=== PATIENT | female | born 1990 | race Caucasian/White ===

== ENCOUNTER 2018-01-17 13:00 | Emergency (ER) | payer SELFPAY ==
[~2018-01-17] VITALS: Ht 172.7 cm; Wt 131.5 kg
--- NOTE | 2018-01-17 15:23 | PHYS DOC ---
Past Medical History Past Medical History: No Pertinent History Past Surgical History: No Surgical History Alcohol Use: None Drug Use: Marijuana, Methamphetamine Social History Narrative: LAST USE 12/2017 Adult General Chief Complaint Chief Complaint: BACK PAIN - NO INJURY HPI HPI Patient is a 27 year old female presents the ED complaining of lower abdominal pain and back pain 2 days. Patient states she is . Last menstrual period was at the end of October. History of 1 previous that went full term without complications. Describes her pain as crampy. Rates her pain as 3 out of 10. Patient states that she just got out of rehabilitation at [facility]. Patient states she was sent there after she got out of [facility] for a parole violation. States she has not used meth in 2-3 months. Denies fever, vaginal discharge/bleeding, diarrhea, nausea/vomiting, chest pain, shortness of breath, lower leg swelling or dysuria. Review of Systems Review of Systems Constitutional: Denies fever or chills [] Eyes: Denies change in visual acuity, redness, or eye pain [] HENT: Denies nasal congestion or sore throat [] Respiratory: Denies cough or shortness of breath [] Cardiovascular: No additional information not addressed in HPI [] GI: Complains of abdominal pain. Denies nausea, vomiting, bloody stools or diarrhea [] : Denies dysuria or hematuria [] Musculoskeletal: Complains of back pain. Denies joint pain [] Integument: Denies rash or skin lesions [] Neurologic: Denies headache, focal weakness or sensory changes [] All other systems were reviewed and found to be within normal limits, except as documented in this note. Current Medications Current Medications Current Medications Medications (Trade) Dose Ordered Sig/[facility] Start Time Stop Time Status Last Admin Dose Admin Acetaminophen (Tylenol) 650 mg 1X ONCE 01/17/18 16:30 01/17/18 16:31 DC 01/17/18 16:29 650 MG Allergies Allergies Allergies Coded Allergies Type Severity Reaction Last Updated Verified aspirin Allergy Unknown 01/17/18 Yes caffeine Allergy Unknown 01/17/18 Yes Physical Exam Physical Exam Constitutional: Well developed, well nourished, no acute distress, non-toxic appearance. [] HENT: Normocephalic, atraumatic Cardiovascular:Heart rate regular rhythm, no murmur [] Lungs & Thorax: Bilateral breath sounds clear to auscultation [] Abdomen: Bowel sounds normal, soft, no tenderness, no masses, no pulsatile masses. [] : Patient refused. Skin: Warm, dry, no erythema, no rash. [] Back: No tenderness, no CVA tenderness. [] Extremities: No tenderness, no cyanosis, no clubbing, ROM intact, no edema. [] Neurologic: Alert and oriented X 3, normal motor function, normal sensory function, no focal deficits noted. [] Psychologic: Affect normal, judgement normal, mood normal. [] Current Patient Data Vital Signs Vital Signs Date Time Temp Pulse Resp B/P (MAP) Pulse Ox O2 Delivery O2 Flow Rate FiO2 01/17/18 17:30 76 135/63 (87) 99 Room Air 01/17/18 13:50 97.9 18 97.9 Lab Values Laboratory Tests Test 01/17/18 14:57 01/17/18 15:14 01/17/18 15:30 POC Urine HCG, Qualitative Hcg positive (Negative) Urine Collection Type Unknown Urine Color Yellow Urine Clarity Clear Urine pH 7.0 Urine Specific [place] 1.020 Urine Protein Negative mg/dL (NEG-TRACE) Urine Glucose (UA) Negative mg/dL (NEG) Urine Ketones (Stick) Negative mg/dL (NEG) Urine Blood Negative (NEG) Urine Nitrite Negative (NEG) Urine Bilirubin Negative (NEG) Urine Urobilinogen Dipstick 0.2 mg/dL (0.2 mg/dL) Urine Leukocyte Esterase Small (NEG) Urine RBC 0 /HPF (0-2) Urine WBC Occ /HPF (0-4) Urine Squamous Epithelial Cells Mod /LPF Urine Bacteria Few /HPF (0-FEW) Urine Mucus Slight /LPF White Blood Count 10.6 x10^3/uL (4.0-11.0) Red Blood Count 4.34 x10^6/uL (3.50-5.40) Hemoglobin 13.5 g/dL (12.0-15.5) Hematocrit 38.0 % (36.0-47.0) Mean Corpuscular Volume 88 fL (79-100) Mean Corpuscular Hemoglobin 31 pg (25-35) Mean Corpuscular Hemoglobin Concent 35 g/dL (31-37) Red Cell Distribution Width 13.4 % (11.5-14.5) Platelet Count 259 x10^3/uL (140-400) Neutrophils (%) (Auto) 71 % (31-73) Lymphocytes (%) (Auto) 22 % (24-48) L Monocytes (%) (Auto) 6 % (0-9) Eosinophils (%) (Auto) 1 % (0-3) Basophils (%) (Auto) 1 % (0-3) Neutrophils # (Auto) 7.6 x10^3uL (1.8-7.7) Lymphocytes # (Auto) 2.3 x10^3/uL (1.0-4.8) Monocytes # (Auto) 0.6 x10^3/uL (0.0-1.1) Eosinophils # (Auto) 0.1 x10^3/uL (0.0-0.7) Basophils # (Auto) 0.1 x10^3/uL (0.0-0.2) Maternal Serum HCG Beta Subunit 72342 mIU/mL (0-5) H Sodium Level 136 mmol/L (136-145) Potassium Level 4.4 mmol/L (3.5-5.1) Chloride Level 103 mmol/L (98-107) Carbon Dioxide Level 22 mmol/L (21-32) Anion Gap 11 (6-14) Blood Urea Nitrogen 9 mg/dL (7-20) Creatinine 0.6 mg/dL (0.6-1.0) Estimated GFR (Cockcroft-Gault) 119.9 BUN/Creatinine Ratio 15 (6-20) Glucose Level 89 mg/dL (70-99) Calcium Level 8.9 mg/dL (8.5-10.1) Total Bilirubin 0.1 mg/dL (0.2-1.0) L Aspartate Amino Transferase (AST) 12 U/L (15-37) L Alanine Aminotransferase (ALT) 16 U/L (14-59) Alkaline Phosphatase 59 U/L (46-116) Total Protein 6.6 g/dL (6.4-8.2) Albumin 3.3 g/dL (3.4-5.0) L Albumin/Globulin Ratio 1.0 (1.0-1.7) Laboratory Tests 01/17/18 15:30 Laboratory Tests 01/17/18 15:30 EKG EKG [] Radiology/Procedures Radiology/Procedures PROCEDURE: OB < 14 WKS Examination: Obstetric ultrasound less than 14 weeks HISTORY: History of back pain, abdominal pain COMPARISON: None available Findings: The uterus measures 13.8 x 10.5 x 1.2 cm. Cervical length measures 4 cm. Single living intrauterine identified with heart rate of 140 bpm. The crown-rump length measures 7.97 cm corresponding to 14 weeks and 0 days. Estimated date of delivery by ultrasound is 07/18/2018. Amniotic fluid is normal. Yolk sac is seen, gestational sac is seen. The right ovary measures 4.3 x 2.1 x 3.0 cm. The left ovary measures 4.4 x 2.3 x 3.3 cm. Blood flow identified in the right and left ovaries. Placenta is anterior. Examination limited due to patient body habitus. IMPRESSION: Single living intrauterine with heart rate of 140 bpm.[] Course & Med Decision Making Course & Med Decision Making Pertinent Labs and Imaging studies reviewed. (See chart for details) []Patient refuses pelvic exam. Discussed labs and imaging with patient. Patient' s pain improved. States she is feeling much better. On re-examination, abdomen is soft nontender nondistended. No peritoneal signs. Tolerating by mouth. Discussed follow-up for repeat ultrasound and beta hCG monitoring outpatient. Provided contact information and education for [facility] [employer]. Follow-up in 1 week. Discussed reasons to return to the ED. Patient understands and agrees with plan. Dragon Disclaimer Dragon Disclaimer This electronic medical record was generated, in whole or in part, using a voice recognition dictation system. Departure Departure Impression: Primary Impression: Abdominal pain in Additional Impression: Urinary tract infection Disposition: 01 HOME, SELF-CARE Condition: IMPROVED Referrals: NO PCP (PCP) GILDA NIEVES MD Patient Instructions: Abdominal Pain During , - Urinary Tract Infection Scripts Nitrofurantoin Monohyd/M-Cryst (MACROBID 100 MG CAPSULE) 100 Mg Capsule 1 CAP PO BID for 7 Days, #14 CAP Prov: AMMON VÁZQUEZ 01/17/18 Problem Qualifiers AMMON VÁZQUEZ Jan 17, 2018 15:23
[2018-01-17 15:25] LABS: BILIRUBIN,URINE NEGATIVE (NEG); CLARITY,URINE CLEAR; COLOR,URINE YELLOW; NITRITE,URINE NEGATIVE (NEG); PROTEIN,URINE NEGATIVE (NEG-TRACE); UROBILINOGEN,URINE 0.2 mg/dL (0.2 mg/dL)
[2018-01-17 15:34] LABS: BACTERIA,URINE FEW /HPF (0-FEW); RBC,URINE 0 /HPF (0-2); SQUAMOUS EPITHELIAL CELL,UR MOD /LPF; WBC,URINE OCC /HPF (0-4)
[2018-01-17 15:43] LABS: BASO # 0.1 x10^3/uL (0.0-0.2); BASO % 1 % (0-3); EOS # 0.1 x10^3/uL (0.0-0.7); EOS % 1 % (0-3); HEMOGLOBIN 13.5 g/dL (12.0-15.5); LYMPH # 2.3 x10^3/uL (1.0-4.8); LYMPH % 22 % (24-48); MEAN CORPUSCULAR HEMOGLOBIN 31 pg (25-35); MEAN CORPUSCULAR HGB CONC 35 g/dL (31-37); MEAN CORPUSCULAR VOLUME 88 fL (79-100); MONO # 0.6 x10^3/uL (0.0-1.1); MONO % 6 % (0-9); NEUT # 7.6 x10^3uL (1.8-7.7); NEUT % 71 % (31-73); PLATELET COUNT 259 x10^3/uL (140-400); RED BLOOD COUNT 4.34 x10^6/uL (3.50-5.40); RED CELL DISTRIBUTION WIDTH 13.4 % (11.5-14.5); WHITE BLOOD COUNT 10.6 x10^3/uL (4.0-11.0)
[2018-01-17 16:04] LABS: CALCIUM 8.9 mg/dL (8.5-10.1); CREATININE 0.6 mg/dL (0.6-1.0); GFR 119.9; POTASSIUM 4.4 mmol/L (3.5-5.1)
[2018-01-17 16:09] LABS: ALBUMIN 3.3 g/dL (3.4-5.0); TOTAL BILIRUBIN 0.1 mg/dL (0.2-1.0); TOTAL PROTEIN 6.6 g/dL (6.4-8.2)
--- NOTE | 2018-01-17 16:14 | RAD ---
Examination: Obstetric ultrasound less than 14 weeks HISTORY: History of back pain, abdominal pain COMPARISON: None available Findings: The uterus measures 13.8 x 10.5 x 1.2 cm. Cervical length measures 4 cm. Single living intrauterine identified with heart rate of 140 bpm. The crown-rump length measures 7.97 cm corresponding to 14 weeks and 0 days. Estimated date of delivery by ultrasound is 07/18/2018. Amniotic fluid is normal. Yolk sac is seen, gestational sac is seen. The right ovary measures 4.3 x 2.1 x 3.0 cm. The left ovary measures 4.4 x 2.3 x 3.3 cm. Blood flow identified in the right and left ovaries. Placenta is anterior. Examination limited due to patient body habitus. IMPRESSION: Single living intrauterine with heart rate of 140 bpm. Electronically signed by: Neal Perez MD (01/17/2018 4:10 PM) [id number]
[2018-01-17] MEDS ORDERED: ACETAMINOPHEN 325 MG TABLET. PO ONE (16:30)
[2018-01-17] MEDS ORDERED: NITR100C62 PO (17:17)
[2018-01-17 17:30] VITALS: BP 135/63
== END 2018-01-17 17:43 | disposition home or self-care (01) ==
LOC: ER 13:00
DX: O23.41 Unspecified infection of urinary tract in pregnancy, first trimester (principal); Z88.6 Allergy status to analgesic agent; Z88.8 Allergy status to other drugs, medicaments and biological substances; Z3A.13 13 weeks gestation of pregnancy
CPT/HCPCS: 36415; 76801; 80053; 81001; 81025; 84702; 85025; 86900; 86901; 99285-25